=== PATIENT | male | born 1965 | race Caucasian/White ===

== ENCOUNTER 2019-03-23 08:54 | Emergency (ER) | payer BC, SELFPAY ==
[2019-03-23 08:56] VITALS: BP 150/79; PULSE 78; RESP 19; TEMP 36.7; O2SAT 100; BMI 26.9
[2019-03-23 09:18] VITALS: BP 125/70; PULSE 74; RESP 16; RESP 18; O2SAT 99
--- NOTE | 2019-03-23 09:18 | EKG12_ITS ---
Test Reason : CP Blood Pressure : / mmHG Vent. Rate : 078 BPM Atrial Rate : 078 BPM P-R Int : 140 ms QRS Dur : 098 ms QT Int : 366 ms P-R-T Axes : 055 057 045 degrees QTc Int : 417 ms Normal sinus rhythm Normal ECG Confirmed by ABIGAIL DENG, LAKE ([id number]), editor book KEKE PISANO ([id number]) on 03/29/2019 11:12:06 AM Referred By: ARJUN Confirmed By:OSVALDO HAYES MD
--- NOTE | 2019-03-23 09:18 | RAD_ITS ---
STUDY: X-RAY CHEST REASON FOR EXAM: Male, 53 years old. One-week history of left chest pain. TECHNIQUE: PA and lateral views of the chest. COMPARISON: None. FINDINGS: EKG electrodes are seen. The lungs are clear and expanded. There is no demonstrated pleural abnormality. Normal size heart. Normal mediastinum and qamar. Normal visualized pulmonary arteries. Normal visualized aortic arch and descending thoracic aorta. Normal visualized thoracic spine. Normal visualized ribs, clavicles, and shoulders. There is no demonstrated abnormality of the visualized soft tissue structures of the upper abdomen. RAD/Chest PA and Lateral IMPRESSION: Normal x-ray examination of the chest. Electronically Signed: Wicho Montesinos, at 10:27 EDT , Service support ,
--- NOTE | 2019-03-23 09:19 | ED.VIS.GEN ---
History of Present Illness Chief Complaint: Chest Pain Informant: Patient Onset: Weeks Context: Sudden Onset Timing: Intermittent Quality: Startle response Location: Pectoral region Current Severity: - - No longer present Maximum Severity: Moderate Worsened by: Nothing Relieved by: Nothing Associated Symptoms: No associated symptoms Narrative: She is a 53-year-old male with no sniffing past medical history who presents with left pectoral chest discomfort, which he describes as a startle response . He states it has that sensation that one has when the realize that for graft or credit card where they last used it. He has no associated symptoms. Father has cardiac disease with bypass surgery at the age of 70. There is no other family members with cardiac disease. He denies history of hypertension, diabetes, hypercholesterolemia. He states he had a colonoscopy approximately 2 months ago and had a polypectomy. He is present on no medication. He states he took aspirin prior to arrival. He reports several episodes over the past week. These episodes last up to several hours. There is no radiation. He denies black or maroon stool. He denies history of reflux, hiatal hernia or peptic ulcer disease. He denies food intolerance. He denies history of pulmonary embolus or DVT. He denies leg pain, swelling discoloration. Prior similar symptoms: No Recent Illness/Hospitalization: No - Past Medical History (1) No significant past medical history Status: Acute Past Medical History - Allergies and Home Meds Allergies/Adverse Reactions: Allergies No Known Allergies Allergy (Verified 03/23/19 09:06) Primary Care Physician: Rick Escobar MD [Primary Care Provider] - Past Medical History: None Surgical History: no surgical history Lives: Alone Smoking Status: Never smoker - He smoked for 3 months 30 years ago. Alcohol: None Drugs: None Review of Systems General: Denies: Chills, Fever, Sweats Eyes: Denies: Visual changes - bilaterally, Diplopia ENT: Denies: Rhinorrhea, Sore throat Cardiovascular: Reports: Chest pain. Denies: Palpitations, Heart racing Respiratory: Denies: Dyspnea, Cough, Dyspnea on exertion Gastrointestinal: Denies: Abdominal pain, Nausea, Vomiting, Diarrhea, Melena, Hematochezia Genitourinary: Denies: Dysuria, Hematuria, Frequency Musculoskeletal: Denies: Myalgias, Arthralgias, Back pain, Swelling, Extremity Pain Skin: Denies: Rash, Wounds Neurological: Denies: Headache, Weakness, Numbness Physical Exam Vital Signs/Narrative: Vital Signs Temp Pulse Resp BP Pulse Ox 03/23/19 08:56 98.0 F 78 19 H 150/79 H 100 Inital Vital Signs reviewed: Yes General: Well nourished, Well developed, No Acute Distress Head: Normocephalic, Atraumatic Eyes: Perrl, EOMI ENT: Moist mucous membranes, No rhinorrhea Neck: Supple, Nontender Cardiovascular: Regular rate, Regular rhythm, No murmurs, Normal S1, Normal S2 Respiratory: No distress, CTA bilaterally, Chest nontender Abdomen: Soft, Nontender, Nondistended, Normal bowel sounds, No masses Back: Nontender, Normal Inspection Extremities: Nontender, No edema, - - There is no asymmetry, swelling, discoloration, leg vein distention, palpable cords or tenderness along the distribution of the deep venous system. Skin: Normal color, No rash Neurological: Alert, Oriented x3, Cranial nerves II-XII grossly intact, Normal Strength, Normal Sensation Psychological: Normal affect, Normal Mood Diagnostic/Tx/Re-eval Chest X-Ray - ED: 2 View, Normal, Heart, Lungs, Mediastinum, Bony Structures, No Acute Disease, - - 2 View chest x-ray was interpreted by me at 1026. Impressions Chest X-Ray 03/23/19 09:18 IMPRESSION: Normal x-ray examination of the chest. Electronically Signed: Wicho Montesinos, at 10:27 EDT , Service support , 03/23/19 09:18 Chest PA and Lateral [RAD] Stat Laboratory Results 03/23/19 03/23/19 10:10 10:10 WBC 6.6 RBC 5.09 Hgb 14.8 Hct 44.3 MCV 87.0 MCH 29.1 MCHC 33.4 RDW Std Deviation 39.3 RDW Coeff of [place] 12.3 Plt Count 215 MPV 9.5 Immature Gran % (Auto) 0.500 Neut % (Auto) 71.3 H Lymph % (Auto) 16.2 L Spencer % (Auto) 9.2 Eos % (Auto) 2.3 Baso % (Auto) 0.5 Absolute Neuts (auto) 4.7 Absolute Lymphs (auto) 1.07 Nucleated RBC % 0 Sodium 140 Potassium 4.1 Chloride 110 H Carbon Dioxide 27.0 Anion Gap 3 L BUN 20 H Creatinine 1.09 Estim Creat Clear Calc 92.17 Est GFR (MDRD) Af Amer 91 Est GFR (MDRD) Non-Af 75 BUN/Creatinine Ratio 18.3 Glucose 100 Calcium 8.8 Troponin I < 0.015 Laboratory values are unremarkable. Troponin is normal. Normal EKG and normal troponin and heart score of 1 patient is safe and appropriate for home discharge. Patient was informed the cause of his pain is uncertain. - EKG Initial EKG Interpretation: Sinus Rhythm - Sinus rhythm with a ventricular rate of 78. CO interval is 140 ms. QS duration 98 ms. QT duration 366 ms. [place] normal. The EKG is normal. - Medical Decision Making Ventral diagnosis is noncardiac versus cardiac etiology. Need to rule out cardiac ischemia versus soft fasciitis versus esophageal spasm versus peptic ulcer disease versus biliary disease. Based on history biliary disease unlikely. Will obtain EKG, chest x-ray and appropriate labs to rule out cardiac etiology/pulmonary. Heart score is ED Disposition - Plan for ED Patient: Disposition: Home or Assisted Living Diagnosis: Left-sided chest pain Instructions: CHEST PAIN, NonCardiac Referrals: Rick Escobar MD [Primary Care Provider] - Keep Otoniel appointment
[2019-03-23 10:20] LABS: Absolute Lymphocyte Count 1.07 X10^3/uL (0.83-4.51); Absolute Neutrophil Count 4.7 X10^3/uL (2.0-7.7); Basophil# 0.03 X10^3/uL; Basophil% 0.5 % (0-1); Eosinophil# 0.15 X10^3/uL; Eosinophils% 2.3 % (0-5); Hematocrit 44.3 % (40-54); Hemoglobin 14.8 g/dL (13.0-16.5); Lymphocyte # 1.07 X10^3/ul (4.0); Lymphocyte % 16.2 % (19-41); Mean Corp Hgb Conc 33.4 g/dL (32-36); Mean Corpuscular Hgb 29.1 pg (27.0-32.0); Mean Platelet Vol. 9.5 fl (6.2-12.0); Monocyte# 0.61 X10^3/uL; Monocyte% 9.2 % (0-10); NRBC Flagged by Analyzer 0 % (0-5); Neutrophil # 4.72 X10^3/uL (2.7-7.7); Neutrophil % 71.3 % (47-70); Platelet Count 215 K/mm3 (150-450); RBC Distribution Width CV 12.3 % (11.6-14.6); RBC Distribution Width SD 39.3 fl (35.1-43.9); Red Blood Count 5.09 M/mm3 (4.6-6.2); White Blood Count 6.6 K/mm3 (4.4-11.0)
[2019-03-23 10:41] LABS: Anion Gap 3 (5-15); BUN 20 mg/dL (7-18); BUN/Creat Ratio 18.3 RATIO (10-20); Calcium,Total 8.8 mg/dL (8.5-10.1); Chloride 110 mmol/L (98-107); Creatinine, Serum 1.09 mg/dL (0.70-1.30); EST Glomerular Filtration Rate 75 mL/min (>60); Est Glom Filt Rate - Afr Amer 91 mL/min (>60); Estimated Creatinine Clearance 92.17 ml/min; Glucose 100 mg/dL (74-106); Potassium 4.1 mmol/L (3.5-5.1); Sodium Level 140 mmol/L (136-145)
[2019-03-23 12:25] VITALS: BP 125/70; PULSE 74; RESP 16; O2SAT 99
== END 2019-03-23 12:27 | disposition home or self-care (01) ==
PROVIDERS: Emergency Provider Emergency Medicine; Family Provider Family Medicine; PCP Family Medicine
DX: R07.89 Other chest pain (principal)
CPT/HCPCS: 71046; 80048; 84484; 85025; 93005; 99284

== ENCOUNTER → 2019-10-20 13:20 | Outpatient (CLI) | payer BC, SELFPAY ==
--- NOTE | 2019-10-20 13:29 | US_ITS ---
STUDY: SUPERFICIAL ULTRASOUND - RIGHT POPLITEAL FOSSA. REASON FOR EXAM: Male, 54 years old. Rt knee pain and swelling TECHNIQUE: A superficial ultrasound was performed with real-time and static vargas-scale imaging. COMPARISON: None. FINDINGS: No [place]''s cyst is seen. There is evidence of a deep venous thrombosis of the right popliteal vein and distal portion of the superficial femoral vein. The referring physician was notified. US/Ext Non Vasc Limited/Soft Tiss IMPRESSION: Deep venous thrombosis involving the right popliteal vein and the distal portion of the right superficial femoral vein. Electronically Signed: Wicho Montesinos, at 14:30 EDT , Service support ,
--- NOTE | 2019-10-20 14:28 | VDLE_ITS ---
Reason For Study: Knee pain RIGHT LEFT GSV is normal. CFV is compressible, spontaneous, phasic, CFV is compressible, spontaneous, phasic, competent, and demonstrates normal competent and demonstrates normal augmentation. augmentation. Right FV prox is partially compressible with mobile thrombus noted. Acute deep vein thrombosis is noted in the right FV, PopV, T/P Trunk, PTV prox-mid, PeroV prox-mid, GastrocV. Distal PeroV and PTV are compressible. Procedure Exam performed in department. A preliminary report was called and/or faxed to Shawn. Interpretation Summary Acute deep vein thrombosis is noted in the right femoral vein. Acute deep vein thrombosis is noted in the right popliteal vein. Acute deep vein thrombosis is noted in the right tibio-peroneal trunk. Acute deep vein thrombosis is noted in the right proximal and mid-posterior tibial vein. Acute deep vein thrombosis is noted in the right proximal and mid-peroneal vein. Acute deep vein thrombosis is noted in the right gastrocnemius vein. The right common femoral vein, distal peroneal vein, and distal posterior tibial vein are patent and compressible. The right great saphenous vein appears patent and compressible segmentally. Ordering Physician: Rick Escobar Referring Physician: Rick Escobar Performed By: Freya Ortiz RVT
== END ==
PROVIDERS: PCP Family Medicine; Referring Provider Family Medicine; Visit Provider Family Medicine
DX: I82.411 Acute embolism and thrombosis of right femoral vein (principal); I82.431 Acute embolism and thrombosis of right popliteal vein; I82.451 Acute embolism and thrombosis of right peroneal vein; I82.441 Acute embolism and thrombosis of right tibial vein; I82.461 Acute embolism and thrombosis of right calf muscular vein; M25.561 Pain in right knee
CPT/HCPCS: 76882; 93971